=== PATIENT | female | born 1945 | race Caucasian/White ===

== ENCOUNTER → 2022-04-30 | Outpatient (POV) | payer MEDICARE, BC ==
[~2022-04-30] VITALS: Ht 152.4 cm; Wt 77.2 kg
[2022-04-30 14:00] VITALS: BP 147/76
== END ==
LOC: M IRPOV 13:51
PROVIDERS: ATTEND Radiology Diagnostic Radiology
DX: Z43.6 Encounter for attention to other artificial openings of urinary tract (principal); Z85.41 Personal history of malignant neoplasm of cervix uteri; Z85.51 Personal history of malignant neoplasm of bladder; Z85.528 Personal history of other malignant neoplasm of kidney; Z87.442 Personal history of urinary calculi; Z90.5 Acquired absence of kidney; Z90.6 Acquired absence of other parts of urinary tract; Z90.710 Acquired absence of both cervix and uterus

== ENCOUNTER → 2022-05-27 | Outpatient (CLI) | payer MEDICARE, BC ==
[~2022-05-27] MED LIST: AMLO1TAB24 PO; CARV6.25 PO; SODI650T PO
== END ==
LOC: M LABSMTC 11:01
PROVIDERS: ATTEND Anesthesiology
DX: Z01.812 Encounter for preprocedural laboratory examination (principal); Z11.52 Encounter for screening for COVID-19

== ENCOUNTER → 2022-05-30 | Outpatient (CLI) | payer MEDICARE, BC ==
[~2022-05-30] MED LIST changes: +CEPHALEXIN 500 MG CAP As Ordered ONE; +ISOVUE-300 61% 50ML VIAL As Ordered ONE; +LIDOCAINE 1% MDV 20ML VIAL As Ordered ONE
[2022-05-30] MEDS: CEPHALEXIN 500 MG CAP PO ONE (11:41)
[2022-05-30 13:01] VITALS: BP 173/74
== END ==
LOC: M IRPRO 10:40
PROVIDERS: ATTEND Radiology Diagnostic Radiology
DX: N13.30 Unspecified hydronephrosis (principal); Z90.5 Acquired absence of kidney; Z90.6 Acquired absence of other parts of urinary tract